=== PATIENT | male | born 1930 | race Caucasian/White ===

== ENCOUNTER 2017-05-09 14:15 | Inpatient (IN) | payer MEDICARE, OTHER ==
[2017-05-09] MEDS ORDERED: Ondansetron 4 MG Tab.DIS PO PRN (14:34)
[2017-05-09] MEDS ORDERED: Ondansetron 4 MG/2 ML SDV IV PRN (14:34)
[2017-05-09] MEDS ORDERED: Temazepam 15 MG Cap PO PRN (14:34)
[2017-05-09] MEDS ORDERED: Acetaminophen 325 MG Tab PO PRN (14:34)
[2017-05-09] MEDS ORDERED: Sodium Chloride 0.9% 10 ML Syringe FLUSH PRN (14:34)
[2017-05-09 15:37] LABS: CHLORIDE,CL 100 mEq/L (98-106); SODIUM,NA 138 mEq/L (136-145)
[2017-05-09] MEDS: Lactated Ringers 1,000 ML IV SCH ×2 (15:55→23:47)
[2017-05-09] MEDS: Oseltamivir 75 MG Cap PO SCH (16:08)
[2017-05-09] MEDS: Enoxaparin 40 MG/0.4 ML Syringe SUBCUT SCH (16:08)
[2017-05-10] MEDS: Oseltamivir 75 MG Cap PO SCH ×2 (08:00→20:06)
[2017-05-10] MEDS: Lactated Ringers 1,000 ML IV SCH ×2 (08:01→17:25)
[2017-05-10] MEDS ORDERED: Albuterol/Ipratropium 3.0-0.5 MG/3 ML Neb Soln NEB PRN (08:38)
[2017-05-10] MEDS: Albuterol/Ipratropium 3.0-0.5 MG/3 ML Neb Soln NEB SCH ×4 (09:17→20:06)
[2017-05-10] MEDS: methylPREDNISolone Sodium Succinate 125 MG/2 ML SDV IVPUSH SCH ×2 (09:17→20:06)
[2017-05-10] MEDS: Enoxaparin 40 MG/0.4 ML Syringe SUBCUT SCH (15:33)
--- NOTE | 2017-05-10 20:57 | PCM.PN ---
- General Info Date of Service: 05/10/17 Admission Dx/Problem (Free Text): Influenza A Functional Status: Reports: Pain Controlled, Tolerating Diet. Denies: Ambulating - Review of Systems General: Reports: Fever, Weakness, Fatigue, Malaise HEENT: Reports: Rhinitis. Denies: Ear Pain, Sinus Congestion Pulmonary: Reports: Shortness of Breath, Cough, Wheezing Cardiovascular: Denies: Chest Pain, Edema, Lightheadedness Gastrointestinal: Denies: Abdominal Pain, Nausea, Vomiting Genitourinary: Reports: No Symptoms Musculoskeletal: Reports: No Symptoms Skin: Reports: No Symptoms Neurological: Reports: Weakness. Denies: Dizziness Psychiatric: Reports: No Symptoms - Patient Data Vitals - Most Recent: Last Vital Signs Temp 99.2 F 05/10/17 16:00 Pulse 101 H 05/10/17 16:00 Resp 22 H 05/10/17 16:00 BP 129/88 05/10/17 16:00 Pulse Ox 95 05/10/17 16:00 Weight - Most Recent: 166 lb 14.239 oz I&O - Last 24 Hours: Intake & Output 05/10/17 05/10/17 05/10/17 06:59 14:59 22:59 Intake Total 1183 1000 2200 Output Total 350 1350 Balance 833 1000 850 Lab Results Last 24 Hours: Laboratory Results - last 24 hr 05/10/17 05/10/17 05/10/17 Range/Units 02:45 07:00 08:06 WBC 11.4 H (5.0-10.0) 10^3/uL RBC 4.50 (4.50-6.00) 10^6/uL Hgb 13.8 L (14.0-18.0) g/dL Hct 40.8 (40.0-54.0) % MCV 90.7 (82.0-94.0) fL MCH 30.7 (27.0-32.0) pg MCHC 33.8 (33.0-38.0) g/dL RDW Coeff of [place] 13.3 (11.0-15.0) % Plt Count 183 (150-400) 10^3/uL Neut % (Auto) 67.8 (35-85) % Lymph % (Auto) 18.0 (10-55) % [place] % (Auto) 12.5 (0-16) % Eos % (Auto) 1.5 (0-5) % Baso % (Auto) 0.2 (0-3) % Neut # (Auto) 7.75 H (1.80-7.00) 10^3/uL Lymph # (Auto) 2.05 (1.00-4.80) 10^3/uL [place] # (Auto) 1.43 H (0.00-0.80) 10^3/uL Eos # (Auto) 0.17 (0.00-0.45) 10^3/uL Baso # (Auto) 0.02 10^3/uL Sodium (136-145) mEq/L Potassium (3.5-5.0) mEq/L Chloride (98-106) mEq/L Carbon Dioxide (21-32) mmol/L BUN (7-18) mg/dL Creatinine (0.7-1.3) mg/dL Est Cr Clr Drug Dosing mL/min Estimated GFR (MDRD) (>=60) mL/min Glucose (75-99) mg/dL Calcium (8.4-10.1) mg/dL Troponin I 0.110 H (0.00-0.06) ng/mL C-Reactive Protein (0.2-0.8) mg/dL Urine Color [place] (YELLOW) Urine Appearance Cloudy (CLEAR) Urine pH 5.0 (4.5-8.0) Ur Specific [place] >= 1.030 H (1.003-1.020) Urine Protein 100 H (NEGATIVE) mg/dL Urine Glucose (UA) 100 H (NEGATIVE) mg/dL Urine Ketones Trace H (NEGATIVE) mg/dL Urine Occult Blood Trace-intact H (NEGATIVE) Urine Nitrite Negative (NEGATIVE) Urine Bilirubin Negative (NEGATIVE) Urine Urobilinogen 1.0 (0.2-1.0) EU/dL Ur Leukocyte Esterase Negative (NEGATIVE) Urine RBC 0-5 (0-5) /HPF Urine WBC Not seen (0-5) /HPF Calcium Oxalate Crystal Moderate H (NOT SEEN) /HPF Amorphous Sediment Moderate H (NOT SEEN) /HPF Hyaline Casts Occasional H (NOT SEEN) /LPF 05/10/17 Range/Units 08:06 WBC (5.0-10.0) 10^3/uL RBC (4.50-6.00) 10^6/uL Hgb (14.0-18.0) g/dL Hct (40.0-54.0) % MCV (82.0-94.0) fL MCH (27.0-32.0) pg MCHC (33.0-38.0) g/dL RDW Coeff of [place] (11.0-15.0) % Plt Count (150-400) 10^3/uL Neut % (Auto) (35-85) % Lymph % (Auto) (10-55) % [place] % (Auto) (0-16) % Eos % (Auto) (0-5) % Baso % (Auto) (0-3) % Neut # (Auto) (1.80-7.00) 10^3/uL Lymph # (Auto) (1.00-4.80) 10^3/uL [place] # (Auto) (0.00-0.80) 10^3/uL Eos # (Auto) (0.00-0.45) 10^3/uL Baso # (Auto) 10^3/uL Sodium 138 (136-145) mEq/L Potassium 3.7 (3.5-5.0) mEq/L Chloride 101 (98-106) mEq/L Carbon Dioxide 28 (21-32) mmol/L BUN 19 H (7-18) mg/dL Creatinine 1.2 (0.7-1.3) mg/dL Est Cr Clr Drug Dosing 41.35 mL/min Estimated GFR (MDRD) 58 L (>=60) mL/min Glucose 109 H D (75-99) mg/dL Calcium 8.6 (8.4-10.1) mg/dL Troponin I (0.00-0.06) ng/mL C-Reactive Protein 12.1 H (0.2-0.8) mg/dL Urine Color (YELLOW) Urine Appearance (CLEAR) Urine pH (4.5-8.0) Ur Specific [place] (1.003-1.020) Urine Protein (NEGATIVE) mg/dL Urine Glucose (UA) (NEGATIVE) mg/dL Urine Ketones (NEGATIVE) mg/dL Urine Occult Blood (NEGATIVE) Urine Nitrite (NEGATIVE) Urine Bilirubin (NEGATIVE) Urine Urobilinogen (0.2-1.0) EU/dL Ur Leukocyte Esterase (NEGATIVE) Urine RBC (0-5) /HPF Urine WBC (0-5) /HPF Calcium Oxalate Crystal (NOT SEEN) /HPF Amorphous Sediment (NOT SEEN) /HPF Hyaline Casts (NOT SEEN) /LPF [place] Results Last 24 Hours: Microbiology 05/09/17 15:09 Influenza Type A Antigen Screen - Final Nasopharyngeal Swab - Nare, Unspecified Positive Influenza A Ag Influenza Type B Antigen Screen - Final NEGATIVE INFLUENZA B VIRUS AG Med Orders - Current: Current Medications Acetaminophen (Tylenol) 650 mg PO Q4H PRN PRN Reason: Pain (Mild 1-3)/fever Last Admin: 05/09/17 16:07 Dose: 650 mg Albuterol/Ipratropium (Duoneb 3.0-0.5 Mg/3 Ml) 3 ml NEB QIDRT [facility] Last Admin: 05/10/17 20:06 Dose: 3 ml Albuterol/Ipratropium (Duoneb 3.0-0.5 Mg/3 Ml) 3 ml NEB Q4H PRN PRN Reason: Dyspnea Enoxaparin Sodium (Lovenox) 40 mg SUBCUT Q24H [facility] Last Admin: 05/10/17 15:33 Dose: 40 mg Lactated Ringer's (Ringers, Lactated) 1,000 mls @ 50 mls/hr IV ASDIRECTED [facility] Last Admin: 05/10/17 17:25 Dose: 125 mls/hr Methylprednisolone Sodium Succinate (Solu-Medrol) 62.5 mg IVPUSH Q12H [facility] Last Admin: 05/10/17 20:06 Dose: 62.5 mg Ondansetron HCl (Zofran Odt) 4 mg PO Q4H PRN PRN Reason: nausea, able to take PO Ondansetron HCl (Zofran) 4 mg IV Q4H PRN PRN Reason: Nausea/Vomiting Oseltamivir Phosphate (Tamiflu) 75 mg PO BID [facility] Last Admin: 05/10/17 20:06 Dose: 75 mg Sodium Chloride (Saline Flush) 10 ml FLUSH ASDIRECTED PRN PRN Reason: Keep Vein Open Temazepam (Restoril) 15 mg PO BEDTIME PRN PRN Reason: Sleep Last Admin: 05/10/17 20:07 Dose: 15 mg - Exam General: Alert, Oriented HEENT: Mucous Membr. Moist/[place] Neck: Supple Lungs: Wheezing Cardiovascular: Regular Rate, Regular Rhythm GI/Abdominal Exam: Normal Bowel Sounds, Soft, Non-Tender Extremities: Normal Inspection, No Pedal Edema Skin: Warm, Dry Neurological: No New Focal Deficit - Problem List & Annotations (1) Influenza A SNOMED Code(s): 512330852 Code(s): J10.1 - FLU DUE TO OTH IDENT INFLUENZA VIRUS W OTH RESP MANIFEST Status: Acute Priority: High Current Visit: Yes - Problem List Review Problem List Initiated/Reviewed/Updated: Yes - My Orders Last 24 Hours: My Active Orders 05/10/17 08:38 PT Evaluation and Treatment [CONS] Routine CULTURE SPUTUM + SMEAR [RM] Routine Albuterol/Ipratropium [DuoNeb 3.0-0.5 MG/3 ML] 3 ml NEB Q4H PRN 05/10/17 08:39 RT Aerosol Therapy [RC] 0800,1200,1600,199905/10/17 08:45 methylPREDNISolone Sod Succ [Solu-MEDROL] 62.5 mg IVPUSH Q12H 05/10/17 09:00 Albuterol/Ipratropium [DuoNeb 3.0-0.5 MG/3 ML] 3 ml NEB QIDRT - Assessment Assessment:: Influenza A - Plan Plan:: Patient complains of more wheezing and shortness of breath this am. Mild cough. States has been coughing up phlegm now. Afebrile. Remains weak, has difficulty sitting up at edge of bed for extended periods of time. Ambulating with walker. Labs this am do show improvement of CRP down to 12.1 from 17. WBC 11.4. Will continue with Tamiflu. Started Solu Medrol 62.5 mg BID. DuoNebs QID. Physical therapy eval. Transfer to acute.
[2017-05-11] MEDS: Lactated Ringers 1,000 ML IV SCH (01:29)
[2017-05-11] MEDS: methylPREDNISolone Sodium Succinate 125 MG/2 ML SDV IVPUSH SCH ×2 (08:52→19:45)
--- NOTE | 2017-05-11 08:52 | PCM.PN ---
- General Info Date of Service: 05/11/17 Admission Dx/Problem (Free Text): Influenza A Functional Status: Reports: Pain Controlled, Tolerating Diet, Incentive Spirometry. Denies: Ambulating - Review of Systems General: Reports: Weakness, Fatigue, Malaise. Denies: Fever HEENT: Reports: Sinus Congestion, Rhinitis Pulmonary: Reports: Shortness of Breath, Cough, Wheezing (still wheezing but much improved today) Cardiovascular: Denies: Chest Pain, Edema, Lightheadedness Gastrointestinal: Denies: Abdominal Pain, Nausea, Vomiting Genitourinary: Reports: No Symptoms Musculoskeletal: Reports: No Symptoms Skin: Reports: No Symptoms Neurological: Reports: No Symptoms - Patient Data Vitals - Most Recent: Last Vital Signs Temp 97.6 F 05/11/17 07:48 Pulse 70 05/11/17 07:48 Resp 20 05/11/17 07:48 BP 126/78 05/11/17 07:48 Pulse Ox 95 05/11/17 07:48 Weight - Most Recent: 166 lb 14.239 oz I&O - Last 24 Hours: Intake & Output 05/10/17 05/11/17 05/11/17 22:59 06:59 14:59 Intake Total 2200 2100 Output Total 1350 1600 Balance 850 500 Med Orders - Current: Current Medications Acetaminophen (Tylenol) 650 mg PO Q4H PRN PRN Reason: Pain (Mild 1-3)/fever Last Admin: 05/09/17 16:07 Dose: 650 mg Albuterol/Ipratropium (Duoneb 3.0-0.5 Mg/3 Ml) 3 ml NEB QIDRT [facility] Last Admin: 05/10/17 20:06 Dose: 3 ml Albuterol/Ipratropium (Duoneb 3.0-0.5 Mg/3 Ml) 3 ml NEB Q4H PRN PRN Reason: Dyspnea Enoxaparin Sodium (Lovenox) 40 mg SUBCUT Q24H [facility] [place] Last Admin: 05/10/17 15:33 Dose: 40 mg Lactated Ringer's (Ringers, Lactated) 1,000 mls @ 50 mls/hr IV ASDIRECTED [facility] [place] Last Admin: 05/11/17 01:29 Dose: 125 mls/hr Methylprednisolone Sodium Succinate (Solu-Medrol) 62.5 mg IVPUSH Q12H [facility] [place] Last Admin: 05/10/17 20:06 Dose: 62.5 mg Ondansetron HCl (Zofran Odt) 4 mg PO Q4H PRN PRN Reason: nausea, able to take PO Ondansetron HCl (Zofran) 4 mg IV Q4H PRN PRN Reason: Nausea/Vomiting Oseltamivir Phosphate (Tamiflu) 75 mg PO BID [facility] Last Admin: 05/10/17 20:06 Dose: 75 mg Sodium Chloride (Saline Flush) 10 ml FLUSH ASDIRECTED PRN PRN Reason: Keep Vein Open Temazepam (Restoril) 15 mg PO BEDTIME PRN PRN Reason: Sleep Last Admin: 05/10/17 20:07 Dose: 15 mg - Exam General: Alert, Oriented HEENT: Mucous Membr. Moist/[place] Neck: Supple Lungs: Decreased Breath Sounds, Wheezing (fine expiratory wheezing but much better air exchange than yesterday) Cardiovascular: Regular Rate, Regular Rhythm GI/Abdominal Exam: Normal Bowel Sounds, Soft, Non-Tender Extremities: Normal Inspection, No Pedal Edema Skin: Warm, Dry Neurological: No New Focal Deficit - Problem List & Annotations (1) Influenza A SNOMED Code(s): 821430355 Code(s): J10.1 - FLU DUE TO OTH IDENT INFLUENZA VIRUS W OTH RESP MANIFEST Status: Acute Priority: High Current Visit: Yes - Problem List Review Problem List Initiated/Reviewed/Updated: Yes - My Orders Last 24 Hours: My Active Orders 05/10/17 08:38 PT Evaluation and Treatment [CONS] Routine CULTURE SPUTUM + SMEAR [RM] Routine Albuterol/Ipratropium [DuoNeb 3.0-0.5 MG/3 ML] 3 ml NEB Q4H PRN 05/10/17 08:39 RT Aerosol Therapy [RC] 0800,1200,1600,2000 05/10/17 08:45 methylPREDNISolone Sod Succ [Solu-MEDROL] 62.5 mg IVPUSH Q12H 05/10/17 09:00 Albuterol/Ipratropium [DuoNeb 3.0-0.5 MG/3 ML] 3 ml NEB QIDRT 05/11/17 08:43 Ambulate [RC] ASDIRECTED 05/12/17 05:11 BASIC METABOLIC PANEL,BMP [CHEM] AM C-REACTIVE PROTEIN [CHEM] AM CBC WITH AUTO DIFF [HEME] AM - Assessment Assessment:: Influenza A - Plan Plan:: Patient complains of more wheezing and shortness of breath this am. Mild cough. States has been coughing up phlegm now. Afebrile. Remains weak, has difficulty sitting up at edge of bed for extended periods of time. Ambulating with walker. Labs this am do show improvement of CRP down to 12.1 from 17. WBC 11.4. Will continue with Tamiflu. Started Solu Medrol 62.5 mg BID. DuoNebs QID. Physical therapy eval. Transfer to acute. 05-11-2017 Patient improved today. States breathing easier. Does still have mild cough and notes wheezing at times. "blowing and clearing my nose better now though". Using incentive spirometer. Still weak with ambulation with walker. Normally does not rely on a walker at home. Afebrile. Lung sounds note fine wheezing but much better air exchange than yesterday. Continue with Tamiflu and Solu Medrol. DuoNebs. Encourage ambulation and PT. Repeat labs tomorrow. Possible discharge home tomorrow if continues to improve.
[2017-05-11] MEDS: Albuterol/Ipratropium 3.0-0.5 MG/3 ML Neb Soln NEB SCH ×4 (08:53→19:42)
[2017-05-11] MEDS: Oseltamivir 75 MG Cap PO SCH ×2 (08:53→19:37)
[2017-05-11] MEDS: Enoxaparin 40 MG/0.4 ML Syringe SUBCUT SCH (14:42)
[2017-05-12 07:27] LABS: CHLORIDE,CL 103 mEq/L (98-106); SODIUM,NA 140 mEq/L (136-145)
[2017-05-12 07:34] VITALS: BP 139/83
[2017-05-12] MEDS: methylPREDNISolone Sodium Succinate 125 MG/2 ML SDV IVPUSH SCH (08:05)
[2017-05-12] MEDS: Albuterol/Ipratropium 3.0-0.5 MG/3 ML Neb Soln NEB SCH (08:05)
[2017-05-12] MEDS: Oseltamivir 75 MG Cap PO SCH (08:05)
--- NOTE | 2017-05-14 18:26 | PCM.DCSUM1 ---
Discharge Summary - Hospital Course Free Text/Narrative:: Patient presented to the clinic in after feeling weak for several days. Had developed mild cough. Night prior to admission, had gotten up to the bathroom, was very weak and fell to the floor. Was unable to get up so spent the rest of the night on the floor. Patient not his usual self, more groggy than usual. Running low grade temps. Sent down from for admission, further labs and chest xray. Was found to have influenza A. Elevated WBC and CRP. Admitted for rehydration, tamiflu and monitoring. - Discharge Data Discharge Date: 05/14/17 Discharge Disposition: Home, Self-Care 01 Condition: Fair - Discharge Diagnosis/Problem(s) (1) Influenza A SNOMED Code(s): 733545148 ICD Code: J10.1 - FLU DUE TO OTH IDENT INFLUENZA VIRUS W OTH RESP MANIFEST Status: Acute Priority: High - Patient Summary/Data Complications: none Consults: Consultations 05/10/17 08:38 PT Evaluation and Treatment [CONS] Routine Hospital Course: patient had slow progression but improved over 4 day hospital stay. Did develop wheezing and more shortness of breath, cough after rehydrated. Very weak on admit but by day of discharge, was up and ambulating without his walker. More alert and oriented by discharge. Initial WBC 14.8, down to 11.4 today. CRP on admit 17.1, trending down now to 12. Initial troponins were indeterminate, trended down with each check. Was dehydrated on admit day per urine and BUN. Rehydrated with IV fluids and did well. Lung sounds with much better air exchange, less wheezing by discharge, coughing up matias phlegm. Overall, status much improved. - Patient Instructions Diet: Usual Diet as Tolerated Activity: As Tolerated - Discharge Plan Prescriptions/Med Rec: Oseltamivir [Tamiflu] 75 mg PO BID 4 Days #8 cap predniSONE [Prednisone] 20 mg PO DAILY #5 tablet Home Medications: Home Meds Cyanocobalamin (Vitamin B-12) [Vitamin B-12] 100 mcg PO DAILY 05/09/17 [History] Oseltamivir [Tamiflu] 75 mg PO BID 4 Days #8 cap 05/12/17 [Rx] predniSONE [Prednisone] 20 mg PO DAILY #5 tablet 05/12/17 [Rx] Patient Handouts: Influenza, Adult Referrals: Rossy Navas PA [ED Midlevel Provider] - (See Perla Navas in clinic in one week) - Discharge Summary/Plan Comment DC Time >30 min.: Yes Discharge Summary/Plan Comment: discharge home on tamiflu, prednisone. Follow up with Perla in a week. - General Info Date of Service: 05/12/17 Admission Dx/Problem (Free Text: Influenza A Functional Status: Reports: Pain Controlled, Tolerating Diet, Ambulating - Review of Systems General: Reports: Weakness, Fatigue. Denies: Fever, Malaise, Chills HEENT: Reports: Sinus Congestion, Rhinitis. Denies: Ear Pain, Sore Throat Pulmonary: Reports: Cough, Sputum. Denies: Shortness of Breath Cardiovascular: Denies: Chest Pain, Edema, Lightheadedness Gastrointestinal: Denies: Abdominal Pain, Nausea, Vomiting Genitourinary: Reports: No Symptoms Musculoskeletal: Reports: No Symptoms Skin: Reports: No Symptoms Neurological: Reports: No Symptoms Psychiatric: Reports: No Symptoms - Patient Data Vitals - Most Recent: Last Vital Signs Temp 98.1 F 05/12/17 07:34 Pulse 86 05/12/17 07:34 Resp 16 05/12/17 07:34 BP 139/83 05/12/17 07:34 Pulse Ox 95 05/12/17 07:34 Weight - Most Recent: 166 lb 14.239 oz Med Orders - Current: Current Medications Discontinued Medications Acetaminophen (Tylenol) 650 mg PO Q4H PRN PRN Reason: Pain (Mild 1-3)/fever Last Admin: 05/09/17 16:07 Dose: 650 mg Albuterol/Ipratropium (Duoneb 3.0-0.5 Mg/3 Ml) 3 ml NEB QIDRT [facility] Last Admin: 05/12/17 08:05 Dose: 3 ml Albuterol/Ipratropium (Duoneb 3.0-0.5 Mg/3 Ml) 3 ml NEB Q4H PRN PRN Reason: Dyspnea Enoxaparin Sodium (Lovenox) 40 mg SUBCUT Q24H [facility] Last Admin: 05/11/17 14:42 Dose: 40 mg Lactated Ringer's (Ringers, Lactated) 1,000 mls @ 50 mls/hr IV ASDIRECTED [facility] Last Admin: 05/11/17 01:29 Dose: 125 mls/hr Methylprednisolone Sodium Succinate (Solu-Medrol) 62.5 mg IVPUSH Q12H [facility] Last Admin: 05/12/17 08:05 Dose: 62.5 mg Ondansetron HCl (Zofran Odt) 4 mg PO Q4H PRN PRN Reason: nausea, able to take PO Ondansetron HCl (Zofran) 4 mg IV Q4H PRN PRN Reason: Nausea/Vomiting Oseltamivir Phosphate (Tamiflu) 75 mg PO BID [facility] Last Admin: 05/12/17 08:05 Dose: 75 mg Sodium Chloride (Saline Flush) 10 ml FLUSH ASDIRECTED PRN PRN Reason: Keep Vein Open Temazepam (Restoril) 15 mg PO BEDTIME PRN PRN Reason: Sleep Last Admin: 05/10/17 20:07 Dose: 15 mg - Exam General: Reports: Alert, Oriented HEENT: Reports: Mucous Membr. Moist/[place] Neck: Reports: Supple Lungs: Reports: Decreased Breath Sounds Cardiovascular: Reports: Regular Rate, Regular Rhythm GI/Abdominal Exam: Normal Bowel Sounds, Soft, Non-Tender Extremities: Normal Inspection, No Pedal Edema Skin: Reports: Warm, Dry Neurological: Reports: No New Focal Deficit Psy/Mental Status: Reports: Alert *Q Meaningful Use (DIS) - VTE *Q VTE Criteria *Q: - Stroke *Q Stroke Criteria *Q: - AMI *Q AMI Criteria *Q:
== END 2017-05-12 11:35 | disposition home or self-care (01) | DRG 195 ==
LOC: CC.MS 14:15 → INTOOBSV 14:15 → OBSVTOIN 14:15 → UNDOADMOB 14:15 → OBSVTOIN 05-10 08:49 → CC.MS 05-10 08:49
PROVIDERS: ADMIT Physician Assistant Medical; ATTEND Family Medicine
DX: J10.1 Influenza due to other identified influenza virus with other respiratory manifestations (principal); R53.1 Weakness; E86.0 Dehydration; M54.5 Low back pain; W19.XXXA Unspecified fall, initial encounter
CPT/HCPCS: 36415; 71046; 80048; 80053; 81001; 84484; 85025; 86140; 87804; 93005; 93010; 94640; 96360; 96361; 96372; 97110-GP; 97161-GP; A9270-GY; G0378; J1650; J2930; J7120

== ENCOUNTER 2018-01-16 14:50 | Observation (INO) | payer MEDICARE, OTHER ==
[2018-01-16] MEDS ORDERED: Temazepam 15 MG Cap PO PRN (16:02)
[2018-01-16] MEDS ORDERED: Sodium Chloride 0.9% 10 ML Syringe FLUSH PRN (16:02)
[2018-01-16] MEDS ORDERED: Ondansetron 4 MG Tab.DIS PO PRN (16:02)
[2018-01-16] MEDS ORDERED: Acetaminophen 325 MG Tab PO PRN (16:02)
[2018-01-16] MEDS: Enoxaparin 40 MG/0.4 ML Syringe SUBCUT SCH (19:44)
[2018-01-17] MEDS: DONEPEZIL 5 MG PO SCH (08:04)
[2018-01-17] MEDS: Aspirin 81 MG Tab.EC PO SCH (08:08)
[2018-01-17] MEDS: Enoxaparin 40 MG/0.4 ML Syringe SUBCUT SCH (15:52)
--- NOTE | 2018-01-17 16:59 | PCM.PN ---
- General Info Date of Service: 01/17/18 Admission Dx/Problem (Free Text): Shortness of Breath Functional Status: Reports: Pain Controlled, Tolerating Diet, Ambulating - Review of Systems General: Reports: Weakness. Denies: Fever, Fatigue HEENT: Reports: No Symptoms Pulmonary: Reports: Shortness of Breath. Denies: Cough Cardiovascular: Denies: Chest Pain, Edema, Lightheadedness Gastrointestinal: Denies: Abdominal Pain, Nausea, Vomiting Genitourinary: Reports: No Symptoms Musculoskeletal: Reports: No Symptoms Skin: Reports: No Symptoms Neurological: Reports: Weakness. Denies: Dizziness - Patient Data Vitals - Most Recent: Last Vital Signs Temp 97.9 F 01/17/18 16:00 Pulse 75 01/17/18 16:00 Resp 18 01/17/18 16:00 BP 126/86 01/17/18 16:00 Pulse Ox 94 L 01/17/18 16:00 Weight - Most Recent: 170 lb 14.4 oz Lab Results Last 24 Hours: Laboratory Results - last 24 hr 01/17/18 Range/Units 07:15 Lactate Dehydrogenase 147 (100-190) U/L Creatine Kinase 97 (35-232) U/L Troponin I 0.040 (0.00-0.06) ng/mL Med Orders - Current: Current Medications Acetaminophen (Tylenol) 650 mg PO Q4H PRN PRN Reason: Pain (Mild 1-3)/fever Aspirin (Halfprin) 162 mg PO DAILY [facility] Last Admin: 01/17/18 08:08 Dose: 162 mg Donepezil HCl (Aricept) 5 mg PO DAILY [facility] Last Admin: 01/17/18 08:04 Dose: 5 mg Enoxaparin Sodium (Lovenox) 40 mg SUBCUT DAILY@1600 [facility] Last Admin: 01/17/18 15:52 Dose: 40 mg Ondansetron HCl (Zofran Odt) 4 mg PO Q4H PRN PRN Reason: nausea, able to take PO Sodium Chloride (Saline Flush) 10 ml FLUSH ASDIRECTED PRN PRN Reason: Keep Vein Open Temazepam (Restoril) 15 mg PO BEDTIME PRN PRN Reason: Sleep - Exam General: Alert, Oriented HEENT: Mucous Membr. Moist/[place] Neck: Supple Lungs: Clear to Auscultation, Normal Respiratory Effort Cardiovascular: Regular Rate, Regular Rhythm GI/Abdominal Exam: Normal Bowel Sounds, Soft, Non-Tender Extremities: Normal Inspection, No Pedal Edema Skin: Warm, Dry Neurological: No New Focal Deficit - Problem List & Annotations (1) Shortness of breath SNOMED Code(s): 652927676 Code(s): R06.02 - SHORTNESS OF BREATH Status: Acute Priority: High Current Visit: Yes - Problem List Review Problem List Initiated/Reviewed/Updated: Yes - My Orders Last 24 Hours: My Active Orders 01/16/18 16:02 Patient Status [ADT] Routine Oxygen Therapy [RC] .PRN Up With Assistance [RC] .PRN Vital Signs [RC] 0000,0400,0800,1200,1600,1999 Chest 2V [CR] Stat Acetaminophen [Tylenol] 650 mg PO Q4H PRN Ondansetron [Zofran ODT] 4 mg PO Q4H PRN Sodium Chloride 0.9% [Saline Flush] 10 ml FLUSH ASDIRECTED PRN Temazepam [Restoril] 15 mg PO BEDTIME PRN Saline Lock Insert [OM.PC] Routine Resuscitation Status Routine 01/16/18 16:03 Cardiac Monitoring [RC] 0800,199901/16/18 17:10 Enoxaparin [Lovenox] 40 mg SUBCUT DAILY@1600 01/16/18 Dinner 2 Gram Sodium Diet [DIET] 01/17/18 08:00 Aspirin [Halfprin] 162 mg PO DAILY Donepezil [Aricept] 5 mg PO DAILY 01/17/18 08:11 Echo Comp wo Cont [US] Routine - Assessment Assessment:: Shortness of breath - Plan Plan:: Patient denies feeling lightheaded today. Does still feel weak at times. More labored breathing noted by staff with ambulation and conversing but sats are stable at 94%. Lungs are clear. Lab work has been negative for infection or concern. Chest xray does show cardiomegaly with small pleural effusions. ProBNP negative. Awaiting echocardiogram Will continue to monitor, obtain echocardiogram. No med changes at this time. Continue to monitor telemetry, does have noted bigeminy at times. Probable discharge home tomorrow.
[2018-01-18] MEDS: DONEPEZIL 5 MG PO SCH (07:57)
[2018-01-18] MEDS: Aspirin 81 MG Tab.EC PO SCH (07:58)
[2018-01-18 12:17] VITALS: BP 127/93
--- NOTE | 2018-01-18 21:00 | PCM.DCSUM1 ---
Discharge Summary - Hospital Course Free Text/Narrative:: Patient presented to satellite clinic in for shortness of breath and fatigue that had been increasing over the last month or so. Family had noted more concerns with activity. Falling asleep more easily during the day. He had mild cough. No fevers. Admitted for further work up to include lab, CXR and echocardiogram due to obvious notable systolic murmur. Diagnosis: Stroke: No Modified Hyde Scale: No Symptoms at All Modified Hyde Scale Score: 0 - Discharge Data Discharge Date: 01/18/18 Discharge Disposition: Home, Self-Care 01 Condition: Good - Discharge Diagnosis/Problem(s) (1) Shortness of breath SNOMED Code(s): 287408669 ICD Code: R06.02 - SHORTNESS OF BREATH Status: Acute Priority: High - Patient Summary/Data Complications: none Hospital Course: Patient does continue to feel short of breath with activity. Oxygen sats have remained stable throughout stay. Cardiac enzymes and EKG remain negative, stable. Chest xray shows cardiomegaly but no infiltrate. Echocardiogram does show severe aortic stenosis. He has been up and ambulatory and tolerating. Will need further follow up with cardiology due to changes with aortic valve. - Patient Instructions Diet: Usual Diet as Tolerated Activity: As Tolerated Other/Special Instructions: Will call you with cardiology appointment when scheduled - Discharge Plan *PRESCRIPTION DRUG MONITORING PROGRAM REVIEWED*: No *COPY OF PRESCRIPTION DRUG MONITORING REPORT IN PATIENT SANTIAGO: No Prescriptions/Med Rec: Furosemide [Lasix] 20 mg PO DAILY #30 tab Home Medications: Home Meds Cyanocobalamin (Vitamin B-12) [Vitamin B-12] 100 mcg PO DAILY 05/09/17 [History] Aspirin [Adult Aspirin] 2 tab PO DAILY 01/16/18 [History] Coconut Oil 1,000 mg PO DAILY 01/16/18 [History] Donepezil [Aricept] 5 mg PO DAILY 01/16/18 [History] Furosemide [Lasix] 20 mg PO DAILY #30 tab 01/18/18 [Rx] Patient Handouts: Aortic Valve Stenosis, Shortness of Breath, Adult Referrals: Rossy Navas PA [ED Midlevel Provider] - (Recheck with Perla in one week in with labs at that time.) - Discharge Summary/Plan Comment DC Time >30 min.: No Discharge Summary/Plan Comment: Discharge home Will start low dose Lasix at 20 mg daily Scheduled with cardiology next week at [facility]. Family aware. - General Info Date of Service: 01/18/18 Admission Dx/Problem (Free Text: Shortness of Breath Functional Status: Reports: Pain Controlled, Tolerating Diet, Ambulating - Review of Systems General: Denies: Fever, Weakness, Fatigue HEENT: Reports: No Symptoms Pulmonary: Reports: Shortness of Breath. Denies: Cough Cardiovascular: Denies: Chest Pain, Edema, Lightheadedness Gastrointestinal: Denies: Abdominal Pain, Nausea, Vomiting Genitourinary: Reports: No Symptoms Musculoskeletal: Reports: No Symptoms Skin: Reports: No Symptoms Neurological: Reports: No Symptoms - Patient Data Vitals - Most Recent: Last Vital Signs Temp 97.6 F 01/18/18 12:00 Pulse 98 01/18/18 12:00 Resp 28 H 01/18/18 12:00 BP 127/93 H 01/18/18 12:00 Pulse Ox 94 L 01/18/18 12:00 Weight - Most Recent: 170 lb 14.4 oz Med Orders - Current: Current Medications Discontinued Medications Acetaminophen (Tylenol) 650 mg PO Q4H PRN PRN Reason: Pain (Mild 1-3)/fever Aspirin (Halfprin) 162 mg PO DAILY [facility] Last Admin: 01/18/18 07:58 Dose: 162 mg Donepezil HCl (Aricept) 5 mg PO DAILY [facility] Last Admin: 01/18/18 07:57 Dose: 5 mg Enoxaparin Sodium (Lovenox) 40 mg SUBCUT DAILY@1600 [facility] Last Admin: 01/17/18 15:52 Dose: 40 mg Ondansetron HCl (Zofran Odt) 4 mg PO Q4H PRN PRN Reason: nausea, able to take PO Sodium Chloride (Saline Flush) 10 ml FLUSH ASDIRECTED PRN PRN Reason: Keep Vein Open Temazepam (Restoril) 15 mg PO BEDTIME PRN PRN Reason: Sleep Last Admin: 01/17/18 20:40 Dose: 15 mg - Exam General: Reports: Alert, Oriented HEENT: Reports: Mucous Membr. Moist/[place] Neck: Reports: Supple Lungs: Reports: Clear to Auscultation, Normal Respiratory Effort Cardiovascular: Reports: Regular Rate, Regular Rhythm, Murmurs GI/Abdominal Exam: Normal Bowel Sounds, Soft, Non-Tender Extremities: Normal Inspection, No Pedal Edema Skin: Reports: Warm, Dry Neurological: Reports: No New Focal Deficit
== END 2018-01-18 11:57 | disposition home or self-care (01) ==
LOC: CC.MS 15:09 → UNDOADMOB 15:09 → CC.MS 16:02
PROVIDERS: ADMIT Physician Assistant Medical; ATTEND Family Medicine
DX: R06.02 Shortness of breath (principal); R53.83 Other fatigue; I50.9 Heart failure, unspecified; I51.7 Cardiomegaly; I35.0 Nonrheumatic aortic (valve) stenosis; Z79.82 Long term (current) use of aspirin; Z79.899 Other long term (current) drug therapy
CPT/HCPCS: 36415; 71046; 80053; 82550; 83615; 83880; 84484; 85025; 85379; 93005; 93306; 96372; A9270-GY; G0378; J1650

== ENCOUNTER 2018-01-20 12:06 | Emergency (ER) | payer MEDICARE, OTHER ==
[2018-01-20 12:09] VITALS: BP 158/88
[2018-01-20 12:33] LABS: CHLORIDE,CL 103 mEq/L (98-106); SODIUM,NA 140 mEq/L (136-145)
--- NOTE | 2018-01-20 12:52 | EDM.PDOC ---
ED HPI GENERAL MEDICAL PROBLEM - General Chief Complaint: General Stated Complaint: weakness, SOB Time Seen by Provider: 01/20/18 12:12 Source of Information: Reports: Patient, Family History Limitations: Reports: No Limitations - History of Present Illness INITIAL COMMENTS - FREE TEXT/NARRATIVE: Patient presents to ER with complaints of shortness of breath and weakness. Family concerned as he is weak. Patient has been having more symptoms over the last month or so. Is more tired, falls asleep easily. Was recently in the hospital and work up was done. All labs and chest xray essentially negative. Echocardiogram was done and patient noted to have severe aortic stenosis. He was started on Lasix daily to prevent overload. He is set up to see cardiology on the for this. Family worried that he will worsen before that appointment. He denies edema. No nausea or vomiting. Has not been drinking as much except coffee and Coke. Onset: Gradual Duration: Week(s):, Getting Worse Location: Reports: Generalized Severity: Moderate Improves with: Reports: Rest Worsens with: Reports: Movement Associated Symptoms: Reports: Shortness of Breath, Weakness. Denies: Confusion , Cough, Fever/Chills, Nausea/Vomiting Middle Chest Pain Score (Numeric/FACES): 5 - Related Data Allergies Allergy/AdvReac Type Severity Reaction Status Date / Time No Known Allergies Allergy Verified 01/20/18 12:13 Home Meds: Home Meds Cyanocobalamin (Vitamin B-12) [Vitamin B-12] 100 mcg PO DAILY 05/09/17 [History] Aspirin [Adult Aspirin] 2 tab PO DAILY 01/16/18 [History] Coconut Oil 1,000 mg PO DAILY 01/16/18 [History] Donepezil [Aricept] 5 mg PO DAILY 01/16/18 [History] Furosemide [Lasix] 20 mg PO DAILY #30 tab 01/18/18 [Rx] Past Medical History HEENT History: Reports: Sinusitis Cardiovascular History: Reports: CAD, Heart Murmur, Hypertension Respiratory History: Reports: SOB Psychiatric History: Reports: Dementia Oncologic (Cancer) History: Reports: Other (See Below) Other Oncologic History: skin cancer of nose - Past Surgical History Cardiovascular Surgical History: Reports: Coronary Artery Bypass GI Surgical History: Reports: Appendectomy, Other (See Below) Other GI Surgeries/Procedures: hemorrhoidectomy Musculoskeletal Surgical History: Reports: Knee Replacement Social & Family History - Family History GI: Reports: Other (See Below) Other GI Family History: COLON CANCER;SON Oncologic: Reports: Colon - Tobacco Use Smoking Status *Q: Never Smoker - Caffeine Use Caffeine Use: Reports: Coffee ED ROS GENERAL - Review of Systems Review Of Systems: See Below Constitutional: Reports: Weakness, Fatigue. Denies: Fever, Chills HEENT: Denies: Ear Pain, Rhinitis, Sinus Problem, Throat Pain, Vertigo Respiratory: Reports: Shortness of Breath. Denies: Cough Cardiovascular: Denies: Chest Pain, Edema, Lightheadedness Endocrine: Reports: Fatigue GI/Abdominal: Denies: Abdominal Pain, Nausea, Vomiting : Reports: Frequency Musculoskeletal: Reports: No Symptoms Skin: Reports: No Symptoms Neurological: Reports: Weakness ED EXAM, GENERAL - Physical Exam Exam: See Below Exam Limited By: No Limitations General Appearance: Alert, WD/WN, No Apparent Distress (generally appears unchanged from his status on discharge from the hospital) Eye Exam: Bilateral Eye: EOMI Ears: Normal External Exam, Normal TMs Nose: Normal Inspection, Normal Mucosa, No Blood Throat/Mouth: Normal Inspection, Normal Oropharynx Head: Normocephalic Neck: Normal Inspection Respiratory/Chest: No Respiratory Distress, Lungs Clear, Normal Breath Sounds Cardiovascular: Regular Rate, Rhythm, Systolic Murmur GI/Abdominal: Normal Bowel Sounds, Soft, Non-Tender Extremities: Normal Inspection, Normal Capillary Refill Neurological: Alert, Oriented Skin Exam: Warm, Dry Course - Vital Signs Last Recorded V/S: Last Vital Signs Temp 96.7 F 01/20/18 12:06 Pulse 74 01/20/18 12:06 Resp 18 01/20/18 12:06 BP 158/88 H 01/20/18 12:06 Pulse Ox 97 01/20/18 12:06 - Orders/Labs/Meds Orders: Active Orders 24 hr Category Date Time Status Chest 2V [CR] Stat Exams 01/20/18 12:11 Taken Labs: Laboratory Tests 01/20/18 01/20/18 01/20/18 Range/Units 12:11 12:11 12:11 WBC 10.3 H (5.0-10.0) 10^3/uL RBC 5.16 (4.50-6.00) 10^6/uL Hgb 15.8 (14.0-18.0) g/dL Hct 47.1 (40.0-54.0) % MCV 91.3 (82.0-94.0) fL MCH 30.6 (27.0-32.0) pg MCHC 33.5 (33.0-38.0) g/dL RDW Coeff of [place] 13.3 (11.0-15.0) % Plt Count 249 (150-400) 10^3/uL Neut % (Auto) 61.9 (35-85) % Lymph % (Auto) 24.6 (10-55) % [place] % (Auto) 10.8 (0-16) % Eos % (Auto) 2.1 (0-5) % Baso % (Auto) 0.6 (0-3) % Neut # (Auto) 6.39 (1.80-7.00) 10^3/uL Lymph # (Auto) 2.54 (1.00-4.80) 10^3/uL [place] # (Auto) 1.12 H (0.00-0.80) 10^3/uL Eos # (Auto) 0.22 (0.00-0.45) 10^3/uL Baso # (Auto) 0.06 10^3/uL D-Dimer, Quantitative 0.57 H (0.00-0.50) Sodium 140 (136-145) mEq/L Potassium 4.5 (3.5-5.0) mEq/L Chloride 103 (98-106) mEq/L Carbon Dioxide 33 H (21-32) mmol/L BUN 16 (7-18) mg/dL Creatinine 1.2 (0.7-1.3) mg/dL Est Cr Clr Drug Dosing 40.61 mL/min Estimated GFR (MDRD) 58 L (>=60) mL/min Glucose 144 H D (75-99) mg/dL Calcium 9.2 (8.4-10.1) mg/dL Lactate Dehydrogenase 159 (100-190) U/L Creatine Kinase 126 (35-232) U/L Troponin I 0.028 (0.00-0.06) ng/mL C-Reactive Protein < 0.2 L (0.2-0.8) mg/dL NT-Pro-B Natriuret Pep 461 (0-1000) pg/mL - Re-Assessments/Exams Free Text/Narrative Re-Assessment/Exam: 01/20/18 13:45 Long discussion held with family about his diagnosis, symptoms that can be associated with this and what to watch out for. All labs done and remain normal and unchanged from . Questions answered to their satisfaction and advised that at this point, patient has no acute changes. Departure - Departure Time of Disposition: 12:50 Disposition: Home, Self-Care 01 Condition: Fair Clinical Impression: Shortness of breath, Aortic stenosis - Discharge Information Referrals: Maxim Vo MD [Primary Care Provider] - Forms: ED Department Discharge Additional Instructions: 1. Rest 2. Continue Lasix 3. Keep hydrated with water, gatorade, juice, etc. Limit caffeine 4. Follow up with scheduled appointment with cardiology this week - My Orders Last 24 Hours: My Active Orders 01/20/18 12:11 Chest 2V [CR] Stat - Assessment/Plan Last 24 Hours: My Active Orders 01/20/18 12:11 Chest 2V [CR] Stat
== END 2018-01-20 13:00 | disposition home or self-care (01) ==
LOC: CC.ED 12:06
DX: I35.0 Nonrheumatic aortic (valve) stenosis (principal); R06.02 Shortness of breath; I25.10 Atherosclerotic heart disease of native coronary artery without angina pectoris; I10 Essential (primary) hypertension; Z79.82 Long term (current) use of aspirin; Z79.899 Other long term (current) drug therapy
CPT/HCPCS: 36415; 71046; 80048; 82550; 83615; 83880; 84484; 85025; 85379; 86140; 93005; 99285

== ENCOUNTER 2018-03-21 16:02 | Emergency (ER) | payer MEDICARE, OTHER ==
[2018-03-21] MEDS ORDERED: Aspirin 81 MG Tab.Chew PO ONE (16:51)
[2018-03-21 17:23] LABS: CHLORIDE,CL 104 mEq/L (98-106); SODIUM,NA 140 mEq/L (136-145)
[2018-03-21 17:33] VITALS: BP 140/87
--- NOTE | 2018-03-21 17:39 | EDM.PDOC ---
ED HPI GENERAL MEDICAL PROBLEM - General Chief Complaint: Chest Pain Stated Complaint: chest pain Time Seen by Provider: 03/21/18 17:06 Source of Information: Reports: Patient, Family History Limitations: Reports: No Limitations - History of Present Illness INITIAL COMMENTS - FREE TEXT/NARRATIVE: Patient presents to ER with daughters with concerns of increased chest discomfort. Patient had climbed 14 stairs up to his daughter's room to discuss "feeling stressed out". Climbing the stairs made him feel more short of breath and increased his anxiety even more. He does have known severe aortic stenosis, has seen Dr. Wen in January. Daughter's relate that they feel he can't wait any longer for the valve replacement. Patient does continue to feel short of breath with activity. Has had intermittent edema but does not feel it has worsened. Does get fatigued easier. Daughter does admit that he doesn't "slow down" and visits the half-way to see his several times a day and "it wears him out". No fevers. No cough. Today, were more concerned as he was complaining of chest discomfort. Onset: Today, Sudden Duration: Hour(s):, Improving Location: Reports: Chest Quality: Reports: Ache Severity: Mild Improves with: Reports: Rest Worsens with: Reports: Movement Associated Symptoms: Reports: Chest Pain, Shortness of Breath, Weakness. Denies : Confusion, Cough, Loss of Appetite, Malaise, Nausea/Vomiting Treatments MANAGER OF INFORMATION: Reports: Aspirin Left Middle Chest Pain Score (Numeric/FACES): 5 - Related Data Allergies Allergy/AdvReac Type Severity Reaction Status Date / Time No Known Allergies Allergy Verified 03/21/18 17:08 Home Meds: Home Meds Cyanocobalamin (Vitamin B-12) [Vitamin B-12] 100 mcg PO DAILY 05/09/17 [History] Aspirin [Adult Aspirin] 2 tab PO DAILY 01/16/18 [History] Coconut Oil 1,000 mg PO DAILY 01/16/18 [History] Donepezil [Aricept] 5 mg PO DAILY 01/16/18 [History] Furosemide [Lasix] 20 mg PO DAILY #30 tab 01/18/18 [Rx] Past Medical History HEENT History: Reports: Sinusitis Cardiovascular History: Reports: CAD, Heart Murmur, Hypertension Respiratory History: Reports: SOB Psychiatric History: Reports: Dementia Oncologic (Cancer) History: Reports: Other (See Below) Other Oncologic History: skin cancer of nose - Past Surgical History Cardiovascular Surgical History: Reports: Coronary Artery Bypass GI Surgical History: Reports: Appendectomy, Other (See Below) Other GI Surgeries/Procedures: hemorrhoidectomy Musculoskeletal Surgical History: Reports: Knee Replacement Social & Family History - Family History Family Medical History: Noncontributory GI: Reports: Other (See Below) Other GI Family History: COLON CANCER;SON Oncologic: Reports: Colon - Tobacco Use Smoking Status *Q: Never Smoker - Caffeine Use Caffeine Use: Reports: None - Recreational Drug Use Recreational Drug Use: No ED ROS GENERAL - Review of Systems Review Of Systems: See Below Constitutional: Reports: Malaise, Weakness, Fatigue. Denies: Fever, Chills HEENT: Reports: No Symptoms Respiratory: Reports: Shortness of Breath. Denies: Cough Cardiovascular: Reports: Chest Pain, Edema. Denies: Lightheadedness Endocrine: Reports: Fatigue GI/Abdominal: Denies: Abdominal Pain, Nausea, Vomiting : Reports: No Symptoms Musculoskeletal: Reports: No Symptoms Skin: Reports: No Symptoms Neurological: Reports: No Symptoms ED EXAM, GENERAL - Physical Exam Exam: See Below Exam Limited By: No Limitations General Appearance: Alert, WD/WN, No Apparent Distress Ears: Normal External Exam, Normal TMs Nose: Normal Inspection, Normal Mucosa, No Blood Throat/Mouth: Normal Inspection, Normal Oropharynx Head: Normocephalic Neck: Normal Inspection, Supple, Non-Tender Respiratory/Chest: No Respiratory Distress, Lungs Clear Cardiovascular: Regular Rate, Rhythm GI/Abdominal: Normal Bowel Sounds, Soft, Non-Tender Extremities: Normal Inspection, Pedal Edema (trace fo pitting edema in lower extremities) Neurological: Alert, Oriented Skin Exam: Warm, Dry Course - Vital Signs Last Recorded V/S: Last Vital Signs Temp 98.1 F 03/21/18 16:45 Pulse 84 03/21/18 17:15 Resp 20 03/21/18 17:15 BP 140/87 03/21/18 17:15 Pulse Ox 95 03/21/18 17:15 - Orders/Labs/Meds Orders: Active Orders 24 hr Category Date Time Status EKG Documentation Completion [RC] STAT Care 03/21/18 16:50 Active Chest 2V [CR] Stat Exams 03/21/18 16:50 Taken Labs: Laboratory Tests 03/21/18 03/21/18 03/21/18 Range/Units 17:00 17:00 17:00 WBC 11.1 H (5.0-10.0) 10^3/uL RBC 4.85 (4.50-6.00) 10^6/uL Hgb 14.9 (14.0-18.0) g/dL Hct 44.1 (40.0-54.0) % MCV 90.9 (82.0-94.0) fL MCH 30.7 (27.0-32.0) pg MCHC 33.8 (33.0-38.0) g/dL RDW Coeff of [place] 13.7 (11.0-15.0) % Plt Count 243 (150-400) 10^3/uL Neut % (Auto) 63.7 (35-85) % Lymph % (Auto) 22.8 (10-55) % [place] % (Auto) 11.2 (0-16) % Eos % (Auto) 1.8 (0-5) % Baso % (Auto) 0.5 (0-3) % Neut # (Auto) 7.09 H (1.80-7.00) 10^3/uL Lymph # (Auto) 2.53 (1.00-4.80) 10^3/uL [place] # (Auto) 1.24 H (0.00-0.80) 10^3/uL Eos # (Auto) 0.20 (0.00-0.45) 10^3/uL Baso # (Auto) 0.05 10^3/uL PT 11.4 (9.7-12.3) SEC INR 1.10 (0.92-1.18) Sodium 140 (136-145) mEq/L Potassium 4.4 (3.5-5.0) mEq/L Chloride 104 (98-106) mEq/L Carbon Dioxide 26 (21-32) mmol/L BUN 21 H (7-18) mg/dL Creatinine 1.1 (0.7-1.3) mg/dL Est Cr Clr Drug Dosing 44.31 mL/min Estimated GFR (MDRD) > 60 (>=60) mL/min Glucose 124 H (75-99) mg/dL Calcium 8.9 (8.4-10.1) mg/dL Lactate Dehydrogenase 149 (100-190) U/L Creatine Kinase 140 (35-232) U/L Troponin I 0.038 (0.00-0.06) ng/mL NT-Pro-B Natriuret Pep 795 (0-1000) pg/mL Meds: Medications Discontinued Medications Generic Name Dose Route Start Last Admin Trade Name Lucas PRN Reason Stop Dose Admin Aspirin 243 mg 03/21/18 16:51 03/21/18 16:54 Aspirin PO 03/21/18 16:52 243 mg ONETIME ONE Administration Departure - Departure Time of Disposition: 17:37 Disposition: Home, Self-Care 01 Condition: Fair Clinical Impression: Atypical chest pain, Aortic stenosis Referrals: Maxim Vo MD [Primary Care Provider] - Forms: ED Department Discharge Additional Instructions: 1. Rest 2. Avoid stairs 3. Diuretics as scheduled 4. Avoid caffeine and salt. 5. Will call you with Dr. Wen's recommendations tomorrow 6. Call with any concerns
== END 2018-03-21 17:50 | disposition home or self-care (01) ==
LOC: CC.ED 16:02
DX: I35.0 Nonrheumatic aortic (valve) stenosis (principal); I10 Essential (primary) hypertension; I25.10 Atherosclerotic heart disease of native coronary artery without angina pectoris; Z95.1 Presence of aortocoronary bypass graft; Z79.899 Other long term (current) drug therapy; Z79.82 Long term (current) use of aspirin; R06.02 Shortness of breath
CPT/HCPCS: 36415; 71046; 80048; 82550; 83615; 83880; 84484; 85025; 85610; 93005; 93010; 99284; 99285; A9270

== ENCOUNTER 2019-12-02 14:07 | Inpatient (IN) | payer MEDICARE, OTHER ==
[2019-12-02 14:49] LABS: CHLORIDE,CL 98 mEq/L (98-106); SODIUM,NA 138 mEq/L (136-145)
[2019-12-02] MEDS ORDERED: Acetaminophen 325 MG Tab PO PRN (15:42)
[2019-12-02] MEDS ORDERED: Docusate Sodium 100 MG Cap PO PRN (15:42)
[2019-12-02] MEDS ORDERED: Sodium Chloride 0.9% 1,000 ML IV SCH (15:45)
[2019-12-02] MEDS ORDERED: Enoxaparin 40 MG/0.4 ML Syringe SUBCUT SCH (16:00)
[2019-12-02] MEDS ORDERED: cefTRIAXone 1 GM Vial IVPUSH SCH (16:00)
[2019-12-02] MEDS ORDERED: Barium Sulfate Oral Susp 450 ML Bottle PO ONE (16:23)
[2019-12-02] MEDS ORDERED: Iopamidol 755 Mg/ML 100 ML Bottle IVPUSH ONE (16:23)
[2019-12-02] MEDS ORDERED: Piperacillin/Tazobactam 3.375 GM in Sodium Chloride 0.9% 100 ML IV ONE (20:34)
[2019-12-02 21:58] VITALS: BP 143/60; PULSE 88
--- NOTE | 2019-12-03 00:22 | DISCH ---
ADMISSION DIAGNOSES: 1. Leukocytosis. 2. General weakness. 3. Nausea and vomiting. DISCHARGE DIAGNOSIS: ACUTE CHOLECYSTITIS. HISTORY: Manolo is an 89-year-old who presented to the clinic earlier today with concerns of nausea and vomiting for the last couple of weeks. He had let his daughter know on Monday that he had been vomiting with decrease in appetite. He was brought into the clinic today for further evaluation as he has not been able to keep a lot down, has been having a lot of weakness secondary to it. Clinic workup did show an elevated white blood count of 26,100 with an elevated CRP of 36.4, with a creatinine 1.4. Urinalysis was clear. Abdominal x-rays were negative. Chest x-ray was grossly unremarkable as well. Elected to proceed with CT of the abdomen and pelvis upon admission. HOSPITAL COURSE: The patient's vital signs have been stable during the entire hospital stay. He has remained afebrile. Upon admission, he did get 1 g Rocephin IV. He did have a bowel movement with some incontinence this evening as well. A CT scan of the abdomen and pelvis report did come back at 1943, which did show acute cholecystitis with the concerns of possible perforation. Blood cultures are currently pending. Lactic acid was within normal limits. LFTs were grossly unremarkable as well. I consulted with Dr. Stallings, general surgeon at [facility], who did feel that patient should undergo a cholecystectomy in the morning. Again, patient did get 1 g of Rocephin; however, for anaerobic coverage patient was given 1 dose of Zosyn IV in the hospital. On further consultation with Dr. Boland, emergency room physician at [facility], kindly did accept transfer. Due to IV antibiotics and also IV fluids, we did call for ALS transfer to [facility]. The patient has remained in satisfactory condition. Vital signs have been stable. The patient has been n.p.o. besides a few sips of water this evening. Otherwise, he has not ate or drank anything today. We will discharge to ALS crew at this time in satisfactory condition for direct transfer to [facility] Emergency Room for admission. I discussed risks and benefits of transfer with the patient. The risks of transfer did include motor vehicle accident, worsening condition en route, with the possibility of . Benefits of transfer included hospitalist with general surgery capabilities for acute cholecystitis. Benefits of non-transfer included close to home, staying in a familiar environment. Risks of non- transfer included worsening of condition to include possibility of with sepsis. The patient did verbalize complete understanding and did elect to proceed with the transfer at this time. EMRE/PATI /[id number]
[2019-12-03] MEDS ORDERED: Lisinopril 5 MG Tab PO SCH (08:00)
[2019-12-03] MEDS ORDERED: Clopidogrel 75 MG Tab PO SCH (08:00)
[2019-12-03] MEDS ORDERED: atorvaSTATin 10 MG Tab PO SCH (08:00)
[2019-12-03] MEDS ORDERED: Furosemide 20 MG Tab PO SCH (08:00)
[2019-12-03] MEDS ORDERED: Metoprolol Succinate 25 MG Tab.ER PO SCH (08:00)
[2019-12-03] MEDS ORDERED: Aspirin 81 MG Tab.EC PO SCH (08:00)
[2019-12-03] MEDS ORDERED: Donepezil 5 MG Tab PO SCH (08:00)
== END 2019-12-02 21:30 | disposition critical access hospital (66) | DRG 445 ==
LOC: CC.MS 14:07 → CC.FCMC 14:07 → CC.MS 15:17 → UNDOADMIN 15:17 → CC.MS 15:42
PROVIDERS: ADMIT Physician Assistant Medical; ATTEND Family Medicine
DX: K81.0 Acute cholecystitis (principal); K82.A2 Perforation of gallbladder in cholecystitis; R15.9 Full incontinence of feces; E11.9 Type 2 diabetes mellitus without complications; F03.90 Unspecified dementia, unspecified severity, without behavioral disturbance, psychotic disturbance, mood disturbance, and anxiety; Z79.82 Long term (current) use of aspirin; Z79.899 Other long term (current) drug therapy; Z95.1 Presence of aortocoronary bypass graft; Z96.652 Presence of left artificial knee joint; Z98.890 Other specified postprocedural states; R10.13 Epigastric pain; R11.2 Nausea with vomiting, unspecified; R53.1 Weakness
CPT/HCPCS: 36415; 71046; 74019; 74177; 80053; 81001; 82150; 83605; 83690; 85025; 86140; 87040; J0696; J1650; J2543; J7030; J7050; Q9967